=== PATIENT | male | born 1990 | race Caucasian/White ===

== ENCOUNTER 2021-04-28 08:24 | Observation (INO) ==
[2021-04-28] MEDS ORDERED: ONDANSETRON 4 MG/2 ML VIAL IV STA (09:11)
[2021-04-28] MEDS ORDERED: HYDROmorphone 2 MG/1 ML VIAL IV STA (09:11)
[2021-04-28] MEDS ORDERED: SODIUM CHLORIDE 0.9% 1,000 ML IV STA (09:11)
[2021-04-28 09:47] LABS: Basophils # 0.1 10*3/uL (0.0-0.2); Basophils % 0.6 % (0.0-0.8); Eosinophils # 0.3 10*3/uL (0.0-0.87); Eosinophils % 2.3 % (0.00-10.9); Hematocrit 44.6 VOL% (42.0-52.0); Hemoglobin 15.2 GM/DL (14.0-18.0); Immature Granulocytes % 0.3 %; Immature Granulocytes Absolute 0.04 #; Lymphocytes # 2.1 10*3/uL (1.4-4.0); Lymphocytes % 17.8 % (21.2-54.2); Mean Corpuscular HGB Conc 34.1 GM/DL (32-36); Mean Corpuscular Volume 88.5 FL (87-102); Mean Platelet Volume 9.2 FL (9.6-12.0); Monocytes % 8.6 % (1.7-12.7); Neutrophils % 70.4 % (38.7-73.9); Platelet Count 338 T/CUMM (130-400); Red Blood Count 5.04 MC/CUMM (3.8-5.5); Red Cell Distribution Width 12.7 % (9.3-17.3); White Blood Count 11.6 T/CUMM (4-12)
[2021-04-28 10:02] LABS: Bilirubin,Urine Negative (Negative); Blood, Urine Negative (Negative); Glucose,Urine (UA) Negative (Negative); Ketones,Urine Negative (Negative); Mucus,Urine Occasional /LPF (Occasional); Nitrite,Urine Negative (Negative); Protein,Urine Negative; RBC,Urine 6 /HPF (0-4); Sperm,Urine Occasional /HPF (Negative); Squamous Epithelial Cell,Urine Occasional /HPF (0-10); Urine Appearance CLEAR (Clear); Urine Color Yellow (Yellow); Urine Specific Gravity 1.019 (1.001-1.035); Urine Urobilinogen < 2.0 EU/DL (<2.0)
[2021-04-28 10:03] LABS: Albumin 3.9 G/DL (3.4-5.0); Bilirubin,Total 0.5 MG/DL (0.20-1.00); Calcium 9.2 MG/DL (8.5-10.1); Osmolality,Calculated 275.7 MOS/KG (273-304); Potassium 3.7 MMOL/L (3.5-5.1)
[2021-04-28] MEDS ORDERED: PIPERACILLIN/TAZOBACTAM 3,375 MG in SODIUM CHLORIDE 0.9% 100 ML IV STA (10:14)
[2021-04-28] MEDS ORDERED: ACETAMINOPHEN 325 MG TABLET PO PRN (10:31)
[2021-04-28] MEDS ORDERED: HYDROmorphone 2 MG/1 ML VIAL IV PRN (10:31)
[2021-04-28] MEDS ORDERED: BISACODYL 5 MG TABLET PO PRN (10:31)
[2021-04-28] MEDS ORDERED: ONDANSETRON 4 MG/2 ML VIAL IV PRN (10:31)
[2021-04-28] MEDS ORDERED: KETOROLAC 30 MG/1 ML VIAL IV PRN (10:31)
[2021-04-28] MEDS ORDERED: ALBUTEROL/IPRATROPIUM 3 ML NEB RESP TX PRN (10:31)
[2021-04-28] MEDS: HYDROmorphone 2 MG/1 ML VIAL IV PRN ×2 (12:15→19:31)
[2021-04-28] MEDS: LACTATED RINGERS 1,000 ML IV SCH ×2 (12:26→20:48)
[2021-04-28] MEDS ORDERED: LIDOCAINE 2% 5 ML VIAL ONE (14:31)
[2021-04-28] MEDS ORDERED: propofoL 200 MG/20 ML VIAL IV ONE ×2 (14:31→16:56)
[2021-04-28] MEDS ORDERED: SUCCINYLCHOLINE 200 MG/10 ML VIAL ONE (14:31)
[2021-04-28] MEDS ORDERED: MIDAZOLAM 2 MG/2 ML VIAL ONE (14:32)
[2021-04-28] MEDS ORDERED: fentaNYL 100 MCG/2 ML VIAL ONE (14:32)
[2021-04-28] MEDS ORDERED: SEVOFLURANE 1 UNIT/15 MINUTE INH ONE ×3 (14:36→18:13)
[2021-04-28] MEDS ORDERED: ONDANSETRON 4 MG/2 ML VIAL ONE (14:36)
[2021-04-28] MEDS ORDERED: ROCURONIUM 50 MG/5 ML VIAL IV ONE ×2 (14:36→17:16)
[2021-04-28] MEDS ORDERED: DEXAMETHASONE 4 MG/1 ML VIAL ONE ×2 (14:36→17:01)
[2021-04-28] MEDS ORDERED: KETOROLAC 30 MG/1 ML VIAL ONE (14:40)
[2021-04-28] MEDS ORDERED: ACETAMINOPHEN INJ 1,000 MG/100 ML VIAL IV ONE (14:40)
[2021-04-28] MEDS ORDERED: BUPIVACAINE MPF 0.25% 30 ML VIAL ONE (16:39)
[2021-04-28] MEDS ORDERED: TISSUE ADHESIVE 1 EACH APPLICATOR TOP ONE (16:40)
[2021-04-28] MEDS ORDERED: LIDOCAINE 1%/EPI INJ 20 ML VIAL ONE (16:40)
[2021-04-28] MEDS ORDERED: PIPERACILLIN/TAZOBACTAM 3,375 MG VIAL IV ONE ×3 (17:02→17:03)
[2021-04-28] MEDS ORDERED: PHENYLEPHRINE 1 MG/10 ML SYRINGE IV ONE ×2 (17:16→17:24)
[2021-04-28] MEDS ORDERED: NEOSTIGMINE 10 MG/10 ML VIAL ONE (17:18)
[2021-04-28] MEDS ORDERED: GLYCOPYRROLATE 0.4 MG/2 ML VIAL ONE ×2 (17:18)
[2021-04-28] MEDS ORDERED: ePHEDrine 50 MG/ML VIAL ONE (17:21)
[2021-04-28] MEDS ORDERED: LACTATED RINGERS 1,000 ML IV ONE (17:35)
[2021-04-28] MEDS: PIPERACILLIN/TAZOBACTAM 3,375 MG in SODIUM CHLORIDE 0.9% 100 ML IV SCH (19:37)
[2021-04-29 00:46] LABS: Basophils % 0.1 % (0.0-0.8); Eosinophils % 0.1 % (0.00-10.9); Hematocrit 42.6 VOL% (42.0-52.0); Hemoglobin 14.4 GM/DL (14.0-18.0); Immature Granulocytes % 0.4 %; Immature Granulocytes Absolute 0.04 #; Lymphocytes # 0.8 10*3/uL (1.4-4.0); Lymphocytes % 7.9 % (21.2-54.2); Mean Corpuscular HGB Conc 33.8 GM/DL (32-36); Mean Corpuscular Volume 89.3 FL (87-102); Mean Platelet Volume 9.3 FL (9.6-12.0); Monocytes % 2.5 % (1.7-12.7); Platelet Count 258 T/CUMM (130-400); Red Blood Count 4.77 MC/CUMM (3.8-5.5); Red Cell Distribution Width 12.7 % (9.3-17.3); White Blood Count 10.2 T/CUMM (4-12)
[2021-04-29] MEDS: PIPERACILLIN/TAZOBACTAM 3,375 MG in SODIUM CHLORIDE 0.9% 100 ML IV SCH ×3 (03:48→18:02)
[2021-04-29] MEDS: LACTATED RINGERS 1,000 ML IV SCH ×2 (04:47→14:14)
[2021-04-29] MEDS: PANTOPRAZOLE 40 MG TABLET PO SCH (09:02)
[2021-04-30] MEDS: LACTATED RINGERS 1,000 ML IV SCH ×2 (00:11→04:06)
[2021-04-30] MEDS: PIPERACILLIN/TAZOBACTAM 3,375 MG in SODIUM CHLORIDE 0.9% 100 ML IV SCH ×2 (01:50→09:01)
[2021-04-30 07:23] VITALS: BP 128/77
[2021-04-30] MEDS: PANTOPRAZOLE 40 MG TABLET PO SCH (08:57)
== END 2021-04-30 10:18 | disposition home or self-care (01) ==
LOC: N.EDINP 08:24 → N.ED 08:24 → N.EDINP 15:23 → N.3E 18:39
PROVIDERS: ADMIT Surgery; ATTEND Surgery